=== PATIENT | female | born 1980 | race Two or more races ===

== ENCOUNTER 2020-02-18 12:25 | Outpatient (CLI) | payer OTHER | END 2020-02-18 17:32 | disposition home or self-care (01) | LOC: OFIC 805 12:25 | PROVIDERS: ATTEND Otolaryngology | DX: R09.81 Nasal congestion (principal); R04.0 Epistaxis; J32.8 Other chronic sinusitis ==

== ENCOUNTER 2020-03-31 07:57 | Outpatient (CLI) | payer OTHER | END 2020-03-31 16:26 | disposition home or self-care (01) | LOC: OFIC 805 07:57 | PROVIDERS: ATTEND Otolaryngology | DX: R04.0 Epistaxis (principal); R09.81 Nasal congestion; J32.8 Other chronic sinusitis ==

== ENCOUNTER 2020-04-28 10:31 | Outpatient (CLI) | payer OTHER | END 2020-04-28 11:20 | disposition home or self-care (01) | LOC: OFIC 805 10:31 | PROVIDERS: ATTEND Otolaryngology | DX: R04.0 Epistaxis (principal); J30.89 Other allergic rhinitis ==

== ENCOUNTER 2020-10-22 14:47 | Outpatient (CLI) | payer OTHER | END 2020-10-22 16:23 | disposition home or self-care (01) | LOC: OFIC 805 14:47 | PROVIDERS: ATTEND Otolaryngology | DX: J30.89 Other allergic rhinitis (principal); R09.81 Nasal congestion ==